=== PATIENT | male | born 1995 | race Two or more races ===

== ENCOUNTER 2018-06-01 03:58 | Emergency (ER) | payer SELFPAY ==
[2018-06-01 04:16] VITALS: BMI 23.1
--- NOTE | 2018-06-01 04:24 | ED PDOC ---
HPI: Psych/Substance Abuse Time Seen by Provider: 06/01/18 04:04 Chief Complaint (Nursing): Alcohol Ingestion Chief Complaint (Provider): Alcohol Ingestion ED Caveat: Intoxicated History Per: EMS History/Exam Limitations: intoxication Additional Complaint(s): 23 years old male brought in by EMS for alcohol intoxication. Patient is uncooperative. History is unobtainable due to patient's intoxicated condition. PMD: None provided Past Medical History Reviewed: Historical Data, Nursing Documentation, Vital Signs Vital Signs: Last Vital Signs Temp 97.8 F 06/01/18 04:16 Pulse 83 06/01/18 04:16 Resp 18 06/01/18 04:16 BP 118/70 06/01/18 04:16 Pulse Ox 98 06/01/18 04:16 - Medical History PMH: No Chronic Diseases - Surgical History Surgical History: No Surg Hx - Family History Family History: States: Unknown Family Hx - Social History Alcohol: Social - Allergies Allergies/Adverse Reactions: Allergies Allergy/AdvReac Type Severity Reaction Status Date / Time No Known Allergies Allergy Verified 06/01/18 04:16 Review of Systems Review Of Systems: ROS cannot be obtained secondary to pt's inabilty to answer questions. Physical Exam - Reviewed Nursing Documentation Reviewed: Yes Vital Signs Reviewed: Yes - Physical Exam Appears: Positive for: Well, No Acute Distress Head Exam: Positive for: ATRAUMATIC, NORMOCEPHALIC Skin: Positive for: Normal Color, Warm, Dry Eye Exam: Positive for: Normal appearance, EOMI, PERRL Neck: Positive for: Normal, Painless ROM, Supple Cardiovascular/Chest: Positive for: Regular Rate, Rhythm. Negative for: Murmur Respiratory: Positive for: Normal Breath Sounds. Negative for: Respiratory Distress Gastrointestinal/Abdominal: Positive for: Normal Exam, Soft. Negative for: Tenderness Back: Positive for: Normal Inspection. Negative for: L CVA Tenderness, R CVA Tenderness Extremity: Positive for: Normal ROM. Negative for: Pedal Edema, Swelling Neurologic/Psych: Positive for: Alert, Gait (steady), Other (speech slurred) - Laboratory Results Result Diagrams: 06/01/18 04:33 06/01/18 04:33 - ECG O2 Sat by Pulse Oximetry: 98 (RA) Pulse Ox Interpretation: Normal Medical Decision Making Medical Decision Making: Time: 416 Initial Impression: 23 years old intoxicated male Initial Plan: --Alcohol serum --CMP --Drug screen --CBC --Ativan --1:1 Observation --Restrains order for patient and staff safety as patient is in high risk of self-injury. [address] Patient signed out to Dr. Mendez, pending sobriety and reevaluation. Scribe Attestation: Documented by Rohini Mckinney, acting as a scribe for Sandoval Hernandez MD. Provider Scribe Attestation: All medical record entries made by the Scribe were at my direction and personally dictated by me. I have reviewed the chart and agree that the record accurately reflects my personal performance of the history, physical exam, medical decision making, and the department course for this patient. I have also personally directed, reviewed, and agree with the discharge instructions and disposition. Disposition - Clinical Impression Clinical Impression: Alcohol intoxication - Patient ED Disposition Is Patient to be Admitted: Transfer of Care - Disposition Disposition: Transfer of Care Disposition Time: 07:00 Condition: CRITICAL Forms: [facility] ([place]ian) Patient Signed Over To: Tracy Mendez (pending sobriety and reevaluation)
[2018-06-01 04:56] LABS: BASO % 0.4 % (0.0-2.0); EOS % 0.4 % (0.0-4.0); HEMOGLOBIN 15.5 g/dL (12.0-18.0); LYMPH # 2.1 K/uL (1.0-4.3); LYMPH % 25.6 % (20.0-40.0); MEAN CELL VOLUME 92.4 fl (80.0-94.0); MEAN CORPUSCULAR HEMOGLOBIN 31.8 pg (27.0-31.0); MEAN CORPUSCULAR HGB CONC 34.4 g/dL (33.0-37.0); MEAN PLATELET VOLUME 10.1 fl (7.2-11.7); MONO # 0.7 K/uL (0.0-0.8); MONO % 9.3 % (0.0-10.0); NEUT # 5.2 K/uL (1.8-7.0); NEUT % 64.3 % (50.0-75.0); NRBC % 0.8 % (0.0-0.0); RBC 4.89 Mil/uL (4.40-5.90); RED CELL DISTRIBUTION WIDTH 13.1 % (11.5-14.5); WHITE BLOOD COUNT 8.1 K/uL (4.8-10.8)
[2018-06-01 05:07] LABS: ALB/GLOB RATIO 1.4 (1.0-2.1); ALBUMIN 5.2 g/dL (3.5-5.0); ALT/SGPT 45 U/L (21-72); AST/SGOT 41 U/L (17-59); BLOOD UREA NITROGEN 12 mg/dl (9-20); CALCIUM 9.7 mg/dL (8.4-10.2); GFR NON-AFRICAN AMERICAN > 60
--- NOTE | 2018-06-01 06:53 | ED PDOC ---
- Laboratory Results Result Diagrams: 06/01/18 04:33 06/01/18 04:33 Lab Results: Total Bilirubin 0.4 mg/dl (0.2-1.3) 06/01/18 04:33 AST 41 U/L (17-59) 06/01/18 04:33 ALT 45 U/L (21-72) 06/01/18 04:33 Alkaline Phosphatase 97 U/L (38-126) 06/01/18 04:33 Total Protein 8.8 G/DL (6.3-8.2) H 06/01/18 04:33 Albumin 5.2 g/dL (3.5-5.0) H 06/01/18 04:33 Globulin 3.6 gm/dL (2.2-3.9) 06/01/18 04:33 Albumin/Globulin Ratio 1.4 (1.0-2.1) 06/01/18 04:33 - ECG O2 Sat by Pulse Oximetry: 98 (RA) Pulse Ox Interpretation: Normal Medical Decision Making Medical Decision Making: Time: 0700 Patient care endorsed by Dr. Hernandez, pending sobriety and reevaluation. Scribe Attestation: Documented by Marlo Rankin, acting as a scribe for Tracy Mendez MD. Provider Scribe Attestation: All medical record entries made by the Scribe were at my direction and personally dictated by me. I have reviewed the chart and agree that the record accurately reflects my personal performance of the history, physical exam, medical decision making, and the department course for this patient. I have also personally directed, reviewed, and agree with the discharge instructions and disposition. 12.15p - awake alert. steady gait. cooperative. will discharge. Disposition Doctor Will See Patient In The: Office Counseled Patient/Family Regarding: Diagnosis, Need For Followup - Clinical Impression Clinical Impression: Alcohol intoxication - POA Present On Arrival: None - Disposition Referrals: [facility] at [place] [Outside] Disposition: Routine/Home Disposition Time: 12:15 Condition: IMPROVED Instructions: Alcohol Use - When Is Drinking a Problem? Forms: [facility] (Citizen [place]), [facility] ED School/Work Excuse Print Language: QATARI
[2018-06-01 08:17] VITALS: TEMP 98
[2018-06-01 14:13] VITALS: BP 112/71; PULSE 88; RESP 17; O2SAT 99
== END 2018-06-01 12:30 | disposition home or self-care (01) ==
LOC: H.ER 03:58
DX: F10.129 Alcohol abuse with intoxication, unspecified (principal); Y90.8 Blood alcohol level of 240 mg/100 ml or more
CPT/HCPCS: 80053; 82948; 85025; 96372; 99285; G0480; J2060